=== PATIENT | male | born 1975 | race Caucasian/White ===

== ENCOUNTER 2025-06-18 05:55 | Emergency (ER) | payer SELFPAY ==
[2025-06-18] MEDS ORDERED: Acetaminophen 500 MG TAB ONE (06:20)
[2025-06-18] MEDS ORDERED: Boostrix 0.5 ML (Tdap) VIAL (>/=7 yrs of age) ONE (07:06)
== END 2025-06-18 07:17 | disposition home or self-care (01) ==
LOC: BURERS 05:55
DX: S01.80XA Unspecified open wound of other part of head, initial encounter (principal); S09.90XA Unspecified injury of head, initial encounter; W17.89XA Other fall from one level to another, initial encounter
CPT/HCPCS: 70450; 90471; 90715